=== PATIENT | female | born 1990 | race Asian ===

== ENCOUNTER 2022-12-02 21:41 | Inpatient (IN) ==
[2022-12-02] MEDS ORDERED: LIDOCAINE 1% LOCAL 20 ML VIAL INFIL PRN (22:18)
[2022-12-02] MEDS ORDERED: OXYTOCIN 30 UNITS/500 ML BAG IV PRN ×2 (22:18→23:27)
[2022-12-02] MEDS ORDERED: LACTATED RINGER'S 1,000 ML IV PRN (22:18)
[2022-12-02] MEDS ORDERED: PENICILLIN G POTASSIUM 6 MU in DEXTROSE 5% 250 ML IV STA (22:27)
[2022-12-02] MEDS ORDERED: ePHEDrine sulfate 50 MG/ML AMP ONE (22:42)
[2022-12-02] MEDS ORDERED: SODIUM CHLORIDE 0.9% PF INJ 10 ML VIAL ONE (22:42)
[2022-12-02] MEDS ORDERED: LIDOCAINE 2%/EPINEPHRINE 1:200,000 20 ML PF ONE (22:42)
[2022-12-02] MEDS ORDERED: fentaNYL citrate PF 100 MCG/2 ML VIAL ONE (22:42)
[2022-12-02] MEDS ORDERED: BUPIVACAINE 0.25% PF 30 ML VIAL ONE (22:42)
[2022-12-02] MEDS ORDERED: fentaNYL 2MCG/ML ROPIVACAINE 1.25MG/ML 100 ML BAG EPI ONE (22:43)
--- NOTE | 2022-12-02 23:01 | History & Physical Report ---
Date of Service December 02, 2022 Assessment & Plan (1) Supervision of normal intrauterine in primigravida: Plan: 31-year-old -0-0-1 at 39 weeks 4 days gestational age presents in active labor (2) Gestational diabetes: (3) Group beta Strep positive: (4) Normal labor: Admission and Anticipated Discharge Date Admission Date: December 02, 2022 History of Present Illness Primary Care Provider: Lashonda Castellon MD 31-year-old -0-0-1 at 39 weeks 4 days gestational age presents in active labor. complicated by: GDM w/16wk glucola *Begin monthly Growth US's @24wks GBS + urine-treat in labor OB Labs: Blood Type B Positive 05/08/22 Antibody Screen NEGATIVE 05/08/22 Hemoglobin 12.1 g/dl (12.0-16.0) 10/02/22 Hematocrit 34.5 % (37.0-47.0) L 10/02/22 Mean Corpuscular Volume 86.7 fL (80.0-100.0) 05/08/22 Platelet Count 305 K/uL (130-400) 05/08/22 Rubella IgG Antibody Immune (Immune) 05/08/22 Rapid Plasma Reagin Nonreactive (Nonreactive) 05/08/22 Hepatitis B Surface Antigen. NON-REACTIVE (NON-REACTIVE) 05/08/22 Hepatitis C Antibody (EIA) NON-REACTIVE (NON-REACTIVE) 05/08/22 HIV (1&2) Ag and Ab Confirmation NON-REACTIVE (NON-REACTIVE) 05/08/22 Glucose 1 Hour 50 gm Load 140 mg/dl (70-130) H 06/26/22 OB Optional Labs: Chlamydia trachomatis RNA Not Detected (NotDetected) 05/08/22 Neisseria gonorrhoeae RNA Not Detected (NotDetected) 05/08/22 Labs Reviewed: Declines cf/sma/cfdna--mln failed 16 week 2 hr gtt. Allergies Allergy/AdvReac Type Severity Reaction Status Date / Time No Known Allergies Allergy Verified 12/02/22 21:57 Home Medications Medication Instructions Recorded Confirmed Type prenat.vits,sherrell,xnt-zsiw-mrorr 1 tab PO DAILY 05/07/22 12/02/22 History acetone (urine) test (Ketone Urine #50 ea 08/25/22 11/27/22 Rx Test strips) blood sugar diagnostic (OneTouch #150 ea 08/25/22 11/27/22 Rx Verio test strips) blood-glucose meter (OneTouch #1 ea 08/25/22 11/27/22 Rx Verio Reflect Meter) lancets 33 gauge (OneTouch Delica #150 ea 08/25/22 11/27/22 Rx Lancets) Patient History Medical History (Updated 12/02/22 @ 23:00 by Margarito Oliveira MD) No pertinent past medical history Family History (System 05/12/22 @ 14:40 by Marlena Sullivan) Mother Asthma Hypertension Heart disease Aunt Breast cancer Social History (System 05/12/22 @ 14:40 by Marlena Sullivan) Smoking Status: Never smoker Hx Alcohol Use: No Hx Substance Use: No Preferred Language: Portuguese Communication Ability: Effective Nursing Techn Required: No Beliefs That Will Affect Care: Buddhist Buddhist Beliefs: prefer female p rovider marital status: marital status details: Calli (31) [phone] Current Living Situation: Spouse and Family Current Living Situation Comment: lives with spouse, child, no pets. current occupational status: employed current occupation: Grad Assist @ [employer] Other Information That Helps Us Care for You: No Assistive Devices: None Physical Exam Genitourinary: OB Exam Monitor Tracing: + external FHT monitor used, + external uterine monitor used, + category I and + normal FHT variability Exam per nurse Results & Data Vital Signs (Past 12 Hours) Vital Signs Temp Pulse Resp BP Pulse Ox 12/02/22 22:52 100 12/02/22 22:52 86 12/02/22 21:56 36.5 C 72 18 123/85 Coding Level of Care Code None Diagnoses Supervision of normal intrauterine in primigravida Z34.00 Gestational diabetes O24.419 Group beta Strep positive B95.1 Normal labor O80; Z37.9
[2022-12-02] MEDS ORDERED: HYDROCORTISONE ACETATE 25 MG SUPP PR PRN (23:27)
[2022-12-02] MEDS ORDERED: DIPHTHERIA/TETANUS/PERTUSSIS Vaccine (Tdap, Age 7+yrs) 0.5mL SYR/VL IM ONE (23:27)
[2022-12-02] MEDS ORDERED: BENZOCAINE 20% SPRY 85 APPLN/85 GM CAN EXT PRN (23:27)
--- NOTE | 2022-12-02 23:29 | Delivery Summary ---
Supervising Physician Co-Signing Physician Notes Patient seen with resident and agree with the above findings and plan. Routine OB care Vaginal Delivery Summary Date of Service December 02, 2022 Vaginal Delivery Summary and 2nd Degree LAC [facility] Vaginal Delivery Charge Delivery Type Details: and 2nd Degree LAC
[2022-12-02 23:34] LABS: Hematocrit (blood only) 37.8 % (37.0-47.0); Hemoglobin 13.1 g/dl (12.0-16.0); Mean Corpuscular Hemoglobin 30.3 pg (25.0-34.0); Mean Corpuscular Hgb Conc 34.7 g/dL (32.0-36.0); Mean Corpuscular Volume 87.5 fL (80.0-100.0); Mean Platelet Volume 12.2 fL (9.4-12.4); Platelet Count 207 K/uL (130-400); RDW Coefficient of Variation 13.2 % (11.5-14.5); RDW Standard Deviation 42.2 fL (36.4-46.3); Red Blood Count 4.32 M/uL (4.20-5.40); White Blood Count 13.31 K/ul (4.8-10.8)
[2022-12-03] MEDS: IBUPROFEN 600 MG TAB PO PRN ×2 (00:02→20:23)
[2022-12-03] MEDS ORDERED: PENICILLIN G POTASSIUM 3 MU in DEXTROSE 5% 100 ML IV PRN (01:18)
[2022-12-03] MEDS: ACETAMINOPHEN 325 MG TAB PO PRN (03:50)
--- NOTE | 2022-12-03 06:34 | Obstetrical Progress Note ---
Date of Service <Frank Berry DO - Last Filed: 12/03/22 06:56> December 03, 2022 Assessment & Plan <Frank Berry DO - Last Filed: 12/03/22 06:56> (1) (spontaneous vaginal delivery): Plan Post day 1 s/p Vital signs reviewed and WNL Pt feels well today, eating, voiding, and ambulating well Pain well controlled with Tylenol and Motrin Routine post care - OOB, ambulation, diet progression as tolerated After discharge, will have 6 week follow-up with Dr. Oliveira. <Margarito Oliveira MD - Last Filed: 12/04/22 08:13> (1) (spontaneous vaginal delivery): Subjective <Frank Berry DO - Last Filed: 12/03/22 06:56> Ambulation: ambulating normally Voiding: no voiding problems Passing Gas:: Yes Diet Tolerance:: regular diet Lochia:: Moderate Feeding Type:: breast feeding Pain well controlled with Tylenol and Motrin Review of Systems -Denies fever or chills -Denies dyspnea, chest pain, or palpitations -Denies breast pain -Denies dysuria -Denies headache or changes in vision Physical Exam <Frank Berry DO - Last Filed: 12/03/22 06:56> General: Alert and oriented. No acute distress Cardiac: Regular rate and rhythm, no murmurs appreciated Respiratory: Lungs clear to auscultation bilaterally, No increased work of breathing Abdominal: Soft, non-tender, non-distended. Bowel sounds present. Uterus: Uterine fundus firm, palpable below umbilicus Extremities: No lower extremity edema, calves non-tender bilaterally Results & Data <Frank Berry DO - Last Filed: 12/03/22 06:56> Vital Signs (Past 12 Hours) Vital Signs Temp Pulse Pulse Resp BP BP Pulse Ox 12/03/22 02:10 36.6 C 69 16 117/66 98 12/03/22 01:25 36.8 C 18 12/03/22 00:55 18 12/03/22 00:25 18 12/03/22 00:10 18 12/02/22 23:55 18 12/02/22 23:40 18 12/02/22 23:25 36.5 C 20 12/03/22 01:25 76 114/66 12/03/22 01:10 75 116/70 12/03/22 00:55 76 110/64 12/03/22 00:40 78 105/60 12/03/22 00:25 77 128/60 12/03/22 00:10 72 128/71 12/02/22 23:55 72 12/02/22 23:55 117/64 12/02/22 23:40 72 12/02/22 23:40 118/66 12/02/22 23:25 82 12/02/22 23:25 127/74 12/02/22 22:57 100 12/02/22 22:57 72 12/02/22 22:52 100 12/02/22 22:52 86 12/02/22 21:56 36.5 C 72 18 123/85 O2 Del Method 12/03/22 02:10 Room Air 12/03/22 01:25 12/03/22 00:55 12/03/22 00:25 12/03/22 00:10 12/02/22 23:55 12/02/22 23:40 12/02/22 23:25 12/03/22 01:25 12/03/22 01:10 12/03/22 00:55 12/03/22 00:40 12/03/22 00:25 12/03/22 00:10 12/02/22 23:55 12/02/22 23:55 12/02/22 23:40 12/02/22 23:40 12/02/22 23:25 12/02/22 23:25 12/02/22 22:57 12/02/22 22:57 12/02/22 22:52 12/02/22 22:52 12/02/22 21:56 <Margarito Oliveira MD - Last Filed: 12/04/22 08:13> Co-Signing Physician Notes Patient seen with resident and agree with the above findings and plan. Routine OB care Resident Activity Tracking <Frank Berry DO - Last Filed: 12/03/22 06:56> Resident Involvement: Resident Care Provided Care Provided: OB Delivery
[2022-12-03] MEDS: DOCUSATE SODIUM 100 MG CAP PO SCH (08:57)
[2022-12-03] MEDS: PRENATAL VITAMIN 1 TAB PO SCH (08:57)
[2022-12-03] MEDS: FERROUS SULFATE 325 MG TAB PO SCH (08:57)
[2022-12-03] MEDS ORDERED: bisacodyL 5 MG TABEC PO SCH (20:00)
--- NOTE | 2022-12-04 04:54 | Obstetrical Progress Note ---
Date of Service <Frank Berry DO - Last Filed: 12/04/22 05:46> December 04, 2022 Assessment & Plan <Frank Berry DO - Last Filed: 12/04/22 05:46> (1) (spontaneous vaginal delivery): Plan Post day 2 s/p Vital signs reviewed and WNL Pt feels well today, eating, voiding, and ambulating well Pain well controlled with Tylenol and Motrin Routine post care - OOB, ambulation, diet progression as tolerated After discharge, will have 6 week follow-up with Dr. Oliveira. <Yamilex Ramsey, - Last Filed: 12/04/22 07:09> (1) (spontaneous vaginal delivery): Subjective <Frank Berry - Last Filed: 12/04/22 05:46> Ambulation: ambulating normally Voiding: no voiding problems Passing Gas:: No (normal bowel sounds) Diet Tolerance:: regular diet Lochia:: Small Feeding Type:: breast feeding Pain well controlled with Motrin Review of Systems -Denies fever or chills -Denies dyspnea, chest pain, or palpitations -Denies breast pain -Denies dysuria -Denies headache or changes in vision Physical Exam <Frank Berry DO - Last Filed: 12/04/22 05:46> General: Alert and oriented. No acute distress Cardiac: Regular rate and rhythm, no murmurs appreciated Respiratory: Lungs clear to auscultation bilaterally, No increased work of breathing Abdominal: Soft, non-tender, non-distended. Bowel sounds present. Uterus: Uterine fundus firm, palpable below umbilicus Extremities: No lower extremity edema, calves non-tender bilaterally Results & Data <Frank Berry DO - Last Filed: 12/04/22 05:46> Vital Signs (Past 12 Hours) Vital Signs Temp Pulse Resp BP Pulse Ox O2 Del Method 12/04/22 02:02 36.5 C 66 16 109/70 98 Room Air 12/03/22 23:02 36.6 C 68 18 102/59 L 100 Room Air 12/03/22 19:06 36.6 C 81 20 109/75 98 Room Air 12/03/22 17:00 36.6 C 60 19 117/82 Room Air <Yamilex Ramsey, - Last Filed: 12/04/22 07:09> Co-Signing Physician Notes Resident Physician Supervision Note: I interviewed and examined the patient. Discussed with Dr. Berry and agree with findings and plan as documented in the note. Any exceptions or clarifications are listed here: PPD 2 doing well. DC instructions reviewed. Followup 6w in office. Documented By: Yamilex Ramsey DO Resident Activity Tracking <Frank Berry DO - Last Filed: 12/04/22 05:46> Resident Involvement: Resident Care Provided Care Provided: OB Delivery
[2022-12-04] MEDS: ACETAMINOPHEN 325 MG TAB PO PRN ×2 (06:57→13:10)
[2022-12-04] MEDS: FERROUS SULFATE 325 MG TAB PO SCH (08:49)
[2022-12-04] MEDS: DOCUSATE SODIUM 100 MG CAP PO SCH (08:49)
[2022-12-04] MEDS: PRENATAL VITAMIN 1 TAB PO SCH (08:49)
[2022-12-04] MEDS: IBUPROFEN 600 MG TAB PO PRN (13:10)
[2022-12-04] MEDS ORDERED: bisacodyL 10 MG SUPP PR PRN (23:27)
== END 2022-12-04 13:50 | disposition home or self-care (01) | DRG 807 ==
LOC: OPB 21:41 → 4S1 21:45 → 4E1 12-03 02:05